=== PATIENT | female | born 1955 | race Caucasian/White ===

== ENCOUNTER 2017-12-13 11:44 | Day surgery (SDC) | payer OTHER ==
[~2017-12-13] VITALS: Ht 167.6 cm; Wt 71.9 kg
[~2017-12-13 11:44] MED LIST: ALTACE PO; ATORVASTATIN CA10 MG PO; Estradiol0.5 MG PO; Hydrocodone-Ap1 EA23 PO; MUPI2TO TOP; Prednisone2.5 MG PO; RAMIPRIL PO; SIROLIMUS1 MG PO; SULTRIDS PO
[2017-12-13] MEDS ORDERED: CALC.25 (12:11)
== END 2017-12-13 13:40 | disposition home or self-care (01) ==
LOC: ORSCSDS 11:44
PROVIDERS: Surgery
PROC: 0DJD8ZZ Inspection of Lower Intestinal Tract, Via Natural or Artificial Opening Endoscopic (ICD-10-PCS; principal; 2017-12-13 13:00)
DX: Z12.11 Encounter for screening for malignant neoplasm of colon (principal); I10 Essential (primary) hypertension; Z94.0 Kidney transplant status; Z87.891 Personal history of nicotine dependence
CPT/HCPCS: J0330; J1980; J2405; J7120

== ENCOUNTER 2020-12-24 11:27 | Emergency (ER) | payer OTHER ==
[~2020-12-24] VITALS: Ht 167.6 cm; Wt 72.6 kg
[~2020-12-24 11:27] MED LIST changes: +CALC.25
[2020-12-24] MEDS ORDERED: Robaxin-750750 MG PO (13:20)
[2020-12-24] MEDS ORDERED: Percocet 5-3251 EACH PO (13:20)
== END 2020-12-24 13:36 | disposition home or self-care (01) ==
LOC: ER 11:27
DX: S51.811A Laceration without foreign body of right forearm, initial encounter (principal); S61.215A Laceration without foreign body of left ring finger without damage to nail, initial encounter; Z79.52 Long term (current) use of systemic steroids; Z95.0 Presence of cardiac pacemaker; Z87.891 Personal history of nicotine dependence
CPT/HCPCS: 12005; 96372-59; 99282-25; A9270; J3010

== ENCOUNTER 2021-01-06 10:12 | Emergency (ER) | payer OTHER ==
[~2021-01-06] VITALS: Ht 167.6 cm; Wt 71.7 kg
[~2021-01-06 10:12] MED LIST changes: +Percocet 5-3251 EACH PO; +Robaxin-750750 MG PO
== END 2021-01-06 11:12 | disposition home or self-care (01) ==
LOC: ER 10:12
DX: S51.811D Laceration without foreign body of right forearm, subsequent encounter (principal); Z95.0 Presence of cardiac pacemaker; Z87.891 Personal history of nicotine dependence; Z79.899 Other long term (current) drug therapy; X58.XXXD Exposure to other specified factors, subsequent encounter

== ENCOUNTER 2022-08-25 05:58 | Day surgery (SDC) | payer MEDICARE, OTHER ==
[2022-08-25] MEDS ORDERED: ASPI325 PO (06:24)
[2022-08-25] MEDS ORDERED: NOVOLOG100 UNIT/2 (06:25)
[2022-08-25] MEDS ORDERED: ATOR10 PO (06:25)
[2022-08-25] MEDS ORDERED: MYCO250 PO (06:26)
[2022-08-25] MEDS ORDERED: HUMULIN N100 UNIT/6 (06:26)
[2022-08-25] MEDS ORDERED: TACR1 (06:27)
[2022-08-25] MEDS ORDERED: PRED5 PO (06:27)
[2022-08-25] MEDS ORDERED: VALCYTE PO (06:28)
--- NOTE | 2022-08-25 09:13 | NUR ---
PT VERBALIZED UNDERSTANDING OF WRITTEN AND VERBAL D/C INST. IV REMOVED. PT TAKING PO FLUIDS /S DIFFICULTY. PT TAKEN OUT OF HRT CENTER VIA W/C.
== END 2022-08-25 23:32 | disposition home or self-care (01) ==
LOC: MHTC 05:58
DX: I35.8 Other nonrheumatic aortic valve disorders (principal); I12.0 Hypertensive chronic kidney disease with stage 5 chronic kidney disease or end stage renal disease; N18.6 End stage renal disease; E78.5 Hyperlipidemia, unspecified; E11.22 Type 2 diabetes mellitus with diabetic chronic kidney disease; F17.200 Nicotine dependence, unspecified, uncomplicated; I07.1 Rheumatic tricuspid insufficiency; Z95.0 Presence of cardiac pacemaker; Z94.0 Kidney transplant status; Z79.82 Long term (current) use of aspirin; Z79.4 Long term (current) use of insulin
CPT/HCPCS: 93312; 93325; A9270; J2704; J7030

== ENCOUNTER 2023-07-09 15:11 | Emergency (ER) | payer MEDICARE, OTHER ==
[~2023-07-09] VITALS: Ht 167.6 cm; Wt 68.0 kg
[~2023-07-09 15:11] MED LIST changes: +ASPI325 PO; +ATOR10 PO; +HUMULIN N100 UNIT/6; +MYCO250 PO; +NOVOLOG100 UNIT/2; +PRED5 PO; +TACR1; +VALCYTE PO
[2023-07-09 16:04] VITALS: BP 191/92
[2023-07-09] MEDS ORDERED: AMOCLA875 PO (17:21)
== END 2023-07-09 17:36 | disposition home or self-care (01) ==
LOC: ER 15:11
DX: S62.637B Displaced fracture of distal phalanx of left little finger, initial encounter for open fracture (principal); W23.0XXA Caught, crushed, jammed, or pinched between moving objects, initial encounter; Z79.899 Other long term (current) drug therapy; Z79.82 Long term (current) use of aspirin; Z79.4 Long term (current) use of insulin; Z79.52 Long term (current) use of systemic steroids; Z87.891 Personal history of nicotine dependence
CPT/HCPCS: 73140; 99283-25

== ENCOUNTER → 2023-09-09 | Outpatient (CLI) | payer MEDICARE, OTHER ==
[~2023-09-09] MED LIST changes: +AMOCLA875 PO
[2023-09-09 13:20] LABS: BASOPHILS ABSOLUTE AUTO 0.05 K/mm3 (0.00-0.23); BASOPHILS PERCENT AUTO 1 % (0-2); EOSINOPHILS ABSOLUTE AUTO 0.16 K/mm3 (0.00-0.68); EOSINOPHILS PERCENT AUTO 2 % (0-6); Hemoglobin 14.6 g/dL (11.5-16.0); IMMATURE GRAN ABSOLUTE AUTO 0.02 K/mm3 (0.00-0.10); IMMATURE GRAN PERCENT AUTO 0 % (0-1); LYMPHOCYTES ABSOLUTE AUTO 0.95 K/mm3 (0.84-5.20); LYMPHOCYTES PERCENT AUTO 14 % (21-46); MONOCYTES ABSOLUTE AUTO 0.58 K/mm3 (0.16-1.47); MONOCYTES PERCENT AUTO 9 % (4-13); Mean Corpuscular HGB 26.2 pg (26.0-34.0); Mean Corpuscular HGB Conc 31.7 g/dL (31.5-36.5); Mean Corpuscular Volume 83 fL (80-100); Mean Platelet Volume 10.3 fL (9.1-12.4); NEUTROPHILS ABSOLUTE AUTO 4.86 K/mm3 (1.96-9.15); NEUTROPHILS PERCENT AUTO 73 % (41-73); Platelet Count 196 K/mm3 (150-400); RDW Coefficient Variation 15.2 % (11.7-14.2); RDW Standard Deviation 45.7 fL (35.1-46.3); Red Blood Cell Count 5.57 M/mm3 (3.80-5.20); White Blood Cell Count 6.62 K/mm3 (4.00-11.30)
[2023-09-09 16:42] LABS: Albumin, Blood 3.3 g/dL (3.4-5.0); Albumin/Globulin Ratio 0.8 (0.8-1.8); Bilirubin, Direct 0.1 mg/dL (0.0-0.3); Bilirubin, Indirect 0.3 mg/dL (0.1-0.7); Bilirubin, Total 0.4 mg/dL (0.1-1.0); Bun/Creatinine Ratio 18.3 (12.0-20.0); Calcium, Blood 9.2 mg/dL (8.5-10.1); Creatinine, Blood 1.04 mg/dL (0.40-1.00); Globulin, Blood 4.2 g/dL (2.2-4.0); Phosphorus, Blood 3.4 mg/dL (2.5-4.9); Potassium, Blood 3.6 mmol/L (3.5-5.5); Total Protein, Blood 7.5 g/dL (6.4-8.2)
[2023-09-14 18:09] LABS: BK QUANTITATION PCR 22 IU/mL (Negative); LOG10 BK QN PCR 1.342 (.)
== END ==
LOC: LAB SHORT 10:20 → LAB 10:20 → LAB FUT 03-15 17:05
PROVIDERS: Internal Medicine Nephrology
DX: N18.2 Chronic kidney disease, stage 2 (mild) (principal); D63.1 Anemia in chronic kidney disease; D51.8 Other vitamin B12 deficiency anemias; D52.8 Other folate deficiency anemias; D50.9 Iron deficiency anemia, unspecified; Z94.0 Kidney transplant status
CPT/HCPCS: 36415; 80053; 82248; 84100; 85025; 87799

== ENCOUNTER → 2024-05-03 | Outpatient (CLI) | payer MEDICARE, OTHER ==
[2024-05-03 13:41] LABS: BASOPHILS ABSOLUTE AUTO 0.05 K/mm3 (0.00-0.23); BASOPHILS PERCENT AUTO 1 % (0-2); EOSINOPHILS PERCENT AUTO 1 % (0-6); Hemoglobin 15.9 g/dL (11.5-16.0); IMMATURE GRAN ABSOLUTE AUTO 0.02 K/mm3 (0.00-0.10); IMMATURE GRAN PERCENT AUTO 0 % (0-1); LYMPHOCYTES ABSOLUTE AUTO 1.04 K/mm3 (0.84-5.20); LYMPHOCYTES PERCENT AUTO 12 % (21-46); MONOCYTES ABSOLUTE AUTO 0.53 K/mm3 (0.16-1.47); MONOCYTES PERCENT AUTO 6 % (4-13); Mean Corpuscular HGB 27.8 pg (26.0-34.0); Mean Corpuscular HGB Conc 33.1 g/dL (31.5-36.5); Mean Corpuscular Volume 84 fL (80-100); Mean Platelet Volume 11.3 fL (9.1-12.4); NEUTROPHILS ABSOLUTE AUTO 6.89 K/mm3 (1.96-9.15); NEUTROPHILS PERCENT AUTO 80 % (41-73); Platelet Count 163 K/mm3 (150-400); RDW Standard Deviation 45.6 fL (35.1-46.3); Red Blood Cell Count 5.72 M/mm3 (3.80-5.20); White Blood Cell Count 8.63 K/mm3 (4.00-11.30)
[2024-05-03 14:02] LABS: Albumin, Blood 3.3 g/dL (3.4-5.0); Anion Gap 9 mmol/L (3-11); Blood Urea Nitrogen 20 mg/dL (8-24); Bun/Creatinine Ratio 20.2 (12.0-20.0); CO2, Blood 22 mmol/L (21-32); Calcium, Blood 8.9 mg/dL (8.5-10.1); Chloride, Blood 112 mmol/L (98-108); Creatinine, Blood 0.99 mg/dL (0.40-1.00); Glomerular Filtration Rate 62 (60-); Glucose, Blood 178 mg/dL (70-99); Phosphorus, Blood 2.3 mg/dL (2.5-4.9); Potassium, Blood 3.9 mmol/L (3.5-5.5); Sodium, Blood 139 mmol/L (136-145)
[2024-05-05 07:37] LABS: SIROLIMUS BY HPLC-MS/MS 3.1 ng/mL
== END ==
LOC: LAB 10:44 → LAB SHORT 10:44 → LAB FUT 03-28 11:10
PROVIDERS: Internal Medicine Nephrology
DX: N18.30 Chronic kidney disease, stage 3 unspecified (principal); D63.1 Anemia in chronic kidney disease; Z94.0 Kidney transplant status; N25.81 Secondary hyperparathyroidism of renal origin; E55.9 Vitamin D deficiency, unspecified; E78.00 Pure hypercholesterolemia, unspecified; R76.9 Abnormal immunological finding in serum, unspecified; R94.5 Abnormal results of liver function studies; R94.6 Abnormal results of thyroid function studies; D51.8 Other vitamin B12 deficiency anemias; D52.8 Other folate deficiency anemias; D50.9 Iron deficiency anemia, unspecified
CPT/HCPCS: 36415; 80069; 80195; 85025

== ENCOUNTER → 2025-03-28 | Outpatient (CLI) | payer MEDICARE, OTHER ==
[2025-03-28 13:48] LABS: BASOPHILS ABSOLUTE AUTO 0.04 K/mm3 (0.00-0.23); BASOPHILS PERCENT AUTO 0 % (0-2); EOSINOPHILS ABSOLUTE AUTO 0.09 K/mm3 (0.00-0.68); EOSINOPHILS PERCENT AUTO 1 % (0-6); Hematocrit 41.6 % (33.0-51.0); Hemoglobin 13.6 g/dL (11.5-16.0); IMMATURE GRAN ABSOLUTE AUTO 0.02 K/mm3 (0.00-0.10); IMMATURE GRAN PERCENT AUTO 0 % (0-1); LYMPHOCYTES ABSOLUTE AUTO 0.98 K/mm3 (0.84-5.20); LYMPHOCYTES PERCENT AUTO 9 % (21-46); MONOCYTES ABSOLUTE AUTO 0.87 K/mm3 (0.16-1.47); MONOCYTES PERCENT AUTO 8 % (4-13); Mean Corpuscular HGB 27.8 pg (26.0-34.0); Mean Corpuscular HGB Conc 32.7 g/dL (31.5-36.5); Mean Corpuscular Volume 85 fL (80-100); Mean Platelet Volume 10.6 fL (9.1-12.4); NEUTROPHILS ABSOLUTE AUTO 8.55 K/mm3 (1.96-9.15); NEUTROPHILS PERCENT AUTO 81 % (41-73); Platelet Count 233 K/mm3 (150-400); RDW Coefficient Variation 13.4 % (11.7-14.2); RDW Standard Deviation 41.8 fL (35.1-46.3); White Blood Cell Count 10.55 K/mm3 (4.00-11.30)
[2025-03-28 14:44] LABS: Alanine Aminotransfer (ALT/SGP 21 U/L (12-78); Albumin, Blood 3.2 g/dL (3.4-5.0); Albumin/Globulin Ratio 0.7 (0.8-1.8); Alk Phos 80 U/L (50-136); Anion Gap 8 mmol/L (3-11); Aspartate Aminotrans (AST/SGOT 16 U/L (12-37); Bilirubin, Direct 0.1 mg/dL (0.0-0.3); Bilirubin, Indirect 0.4 mg/dL (0.1-0.7); Bilirubin, Total 0.5 mg/dL (0.1-1.0); Blood Urea Nitrogen 31 mg/dL (8-24); CHOL/HDL RATIO 3.2; CO2, Blood 26 mmol/L (21-32); Chloride, Blood 104 mmol/L (98-108); Cholesterol 169 mg/dL (50-200); Creatinine, Blood 1.35 mg/dL (0.40-1.00); Ferritin, Serum 117 ng/mL (8-252); Globulin, Blood 4.3 g/dL (2.2-4.0); Glomerular Filtration Rate 43 (60-); Glucose, Blood 206 mg/dL (70-99); HDL Cholesterol 53 mg/dL (>39); Iron Serum 30 ug/dL (50-170); LDL/HDL RATIO 1.5; Low Density Lipoprotein Chol 81 mg/dL (0-110); Percent Saturation 12.6 % (15.0-50.0); Sodium, Blood 134 mmol/L (136-145); Total Iron Binding Capacity 238 ug/dL (250-450); Total Protein, Blood 7.5 g/dL (6.4-8.2); Triglycerides 177 mg/dL (30-160); Very Low Density Lipoprot Chol 35 mg/dL (6-32)
== END | disposition home or self-care (01) ==
LOC: LAB 10:11 → LAB SHORT 10:11 → LAB FUT 08-29 10:10
PROVIDERS: Internal Medicine Nephrology
DX: N18.2 Chronic kidney disease, stage 2 (mild) (principal); D63.1 Anemia in chronic kidney disease; N25.81 Secondary hyperparathyroidism of renal origin; E55.9 Vitamin D deficiency, unspecified; E78.00 Pure hypercholesterolemia, unspecified; D50.9 Iron deficiency anemia, unspecified; D52.8 Other folate deficiency anemias; D51.8 Other vitamin B12 deficiency anemias; R76.9 Abnormal immunological finding in serum, unspecified; R94.5 Abnormal results of liver function studies; R94.6 Abnormal results of thyroid function studies
CPT/HCPCS: 36415; 80053; 80061; 80195; 82248; 82306; 82607; 82728; 82746; 83540; 83550; 83970; 84100; 84443; 85025

== ENCOUNTER 2025-05-03 07:24 | Observation (INO) | payer MEDICARE, OTHER ==
[~2025-05-03] VITALS: Ht 167.6 cm; Wt 72.6 kg
[~2025-05-03 07:24] MED LIST changes: +HUMULIN N100 UNIT/3 SC; -HUMULIN N100 UNIT/6; +NOVOLOG FL100 UNIT/3 SC; -NOVOLOG100 UNIT/2
[2025-05-03] MEDS ORDERED: NS 250 ML IV ONE (14:20)
[2025-05-03] MEDS ORDERED: Heparin Sodium 1000 Units/ML 10ML MDV ONE (14:21)
[2025-05-03] MEDS ORDERED: NS 1,000 ML IV ONE (14:21)
[2025-05-03] MEDS ORDERED: Midazolam HCl 1MG / ML 2ML Vial ONE ×3 (14:41→15:42)
[2025-05-03] MEDS ORDERED: FentaNYL Citrate 50 MCG/ML 2 ML Injection ONE ×3 (14:42→16:23)
[2025-05-03] MEDS ORDERED: NS 500 ML IV ONE (14:44)
[2025-05-03] MEDS ORDERED: DiphenhydrAMINE HCl 50 MG/ML 1ML Vial ONE (15:42)
[2025-05-03 16:57] VITALS: BP 163/75
[2025-05-03] MEDS ORDERED: SIRO1 PO (16:59)
[2025-05-03] MEDS ORDERED: LOSA50 PO (17:01)
[2025-05-03] MEDS ORDERED: FENOFIBRATE48 MG PO (17:02)
[2025-05-03] MEDS ORDERED: FURO20 PO (17:03)
[2025-05-03] MEDS ORDERED: EZET10 PO (17:03)
--- NOTE | 2025-05-03 17:52 | NUR ---
PT ARRIVED TO UNIT @ 1645. AOX4, PLEASANT, COOPERATIVE WITH CARE, ABLE TO MAKE NEEDS KNOWN. POST RENAL STENT PLACEMENT. 2 ACCESS SITES, LEFT AND RIGHT GROIN SITES. PT EDUCATED ON LYING FLAT FOR 2 HOURS POST PLACEMENT, UNDERSTANDING AND COOPERATIVE. RENAL/CC DIET ORDER PLACED. MED REC COMPLETED. ADMISSION ASSESSMENT COMPLETED. UNABLE TO VISUALIZE PT COCCYX/BACKSIDE D/T LYING FLAT FOR STENT PLACEMENT RECOVERY. DENIES PAIN. RUNNING SINUS ON TELE. VITALS STABLE OUTSIDE OF SOMEWHAT ELEVATED BP. BED LOCKED IN LOWEST POSITION. [facility] CONTINUING TO MONITOR.
[2025-05-03 18:23] VITALS: BP 131/68
[2025-05-03] MEDS ORDERED: Polyethylene Glycol 3350 17 gm PO PRN (19:30)
[2025-05-03 19:44] VITALS: BP 146/67
[2025-05-03] MEDS ORDERED: Insulin Human Lispro 100 Units/ML 3ML Syringe SC SCH (21:00)
[2025-05-03 23:06] VITALS: BP 136/54
--- NOTE | 2025-05-03 23:21 | NUR ---
PT HAS LATE DINNER AND NORMALLY TAKES HER INSULIN AT 2100, THIS RN ARRIVED TO ROOM AT APPROX 2230, PT INFORMED THIS RN THAT SHE HAD TAKEN HER OWN INSULIN, 4 UNITS OF NOVOLIN AND HAS HER OWN GLUCOMETER, ATTEMPTED TO EDUCATED PT ON NOT TAKING HER OWN MEDICATIONS AND THAT WHILE AT THE HOSPITAL THE NURSES/DOCTORS MANAGMENT, PT STATED SHE KNOWNS THAT BUT THAT SHE HAS HER OWN SCHEDUEL AND THAT SHE WANTS HER INSULIN TO BE DONE AT THOSE TIMES TO KEEP HER SCHEDULE, ASKED PT IF WE COULD HOLD ONTO HER INSULIN PENS, PT DECLINED, NOTIFIED OF SITUATION
[2025-05-04 04:03] VITALS: BP 150/67
[2025-05-04 04:40] LABS: BASOPHILS ABSOLUTE AUTO 0.04 K/mm3 (0.00-0.23); BASOPHILS PERCENT AUTO 1 % (0-2); EOSINOPHILS ABSOLUTE AUTO 0.14 K/mm3 (0.00-0.68); EOSINOPHILS PERCENT AUTO 2 % (0-6); Hematocrit 29.1 % (33.0-51.0); Hemoglobin 9.3 g/dL (11.5-16.0); IMMATURE GRAN ABSOLUTE AUTO 0.03 K/mm3 (0.00-0.10); IMMATURE GRAN PERCENT AUTO 0 % (0-1); LYMPHOCYTES ABSOLUTE AUTO 1.00 K/mm3 (0.84-5.20); LYMPHOCYTES PERCENT AUTO 13 % (21-46); MONOCYTES ABSOLUTE AUTO 0.77 K/mm3 (0.16-1.47); MONOCYTES PERCENT AUTO 10 % (4-13); Mean Corpuscular HGB Conc 32.0 g/dL (31.5-36.5); Mean Corpuscular Volume 84 fL (80-100); NEUTROPHILS ABSOLUTE AUTO 5.83 K/mm3 (1.96-9.15); NEUTROPHILS PERCENT AUTO 75 % (41-73); NRBC ABSOLUTE 0.00 K/mm3 (0.00-0.02); NRBC Auto 0.0 /100 WBC (0.0-0.2); Platelet Count 300 K/mm3 (150-400); RDW Coefficient Variation 14.6 % (11.7-14.2); RDW Standard Deviation 44.9 fL (35.1-46.3)
--- NOTE | 2025-05-04 05:44 | NUR ---
SHIFT SUMMARY PT IS A&O X4, ABLE TO MAKE NEEDS KNOWN, MOVING ALL EXTREMITIES WITH PURPOSE, REPOSITIONING SELF IN BED, SBA TO BRP. CONTINUOUS SPO2, SPO2 GREATER 90% ON RA, LUNGS SOUND CLEAR T/O, NO SIGNS OF RESPIRATORY DISTRESS. CONTINUOUS TELE MONITORING, SINUS RHYTHM 70-80 S, PULSES PRESENT T/O, PT DENEIS CHEST P/P T/O THIS SHIFT, BP STABLE WITH MAP GREATER THAN 65. BOWEL TONES PRESENT IN ALL 4Q, PT DENIES FEELINGS OF NAUSEA, OR CONSTIPATION. PROCEDURE COMPLETED 05/03, BILATERAL GROIN SITES ARE SOFT AND NONTENDER WITHOUT SIGNS OF HEMATOMA DRESSINGS ARE C/D/I. BED LOWEST POSITION, CALL LIGHT IN REACH, AWAITING TO GIVE REPORT TO ONCOMING RN.
[2025-05-04 07:29] VITALS: BP 157/65
--- NOTE | 2025-05-04 07:42 | NUR ---
ASSUMPTION NOTE: THIS RN TO ASSUME CARE OF PT. PATIENT WAS ASKED ABOUT BLOOD SUGAR SCHEDULE PER REPORT PT GAVE HERSELF INSULIN. PT STATED SHE WOULD LIKE TO USE HER DEXCOM FOR SUGARS BUT IS OKAY WITH US GIVING HER INSULIN PER HER NUMBERS,THIS RN CONTACTED MD REGARDING ORDER FOR THIS,AWAITING A RESPONSE. PT VITAL SIGNS STABLE, MEDICATIONS GIVEN & PT AWAITING BREAKFAST
--- NOTE | 2025-05-04 07:46 | NUR ---
RESPONSE: CONTACTED RN REGARDING PATIENT USING DEXCOM NUMBERS, MD GAVE ORDER FOR PT TO USE HER DEXCOM NUMBERS IN ORDER TO GIVE INSULIN. THIS RN WILL PLACE NURSE NOTIFY ORDER.
[2025-05-04 08:19] LABS: Alanine Aminotransfer (ALT/SGP 17.0 U/L (12-78); Albumin, Blood 2.7 g/dL (3.4-5.0); Albumin/Globulin Ratio 0.7 (0.8-1.8); Anion Gap 11.0 mmol/L (3-11); Aspartate Aminotrans (AST/SGOT 14.0 U/L (12-37); Bilirubin, Total 0.2 mg/dL (0.1-1.0); Blood Urea Nitrogen 50.0 mg/dL (8-24); CO2, Blood 23.0 mmol/L (21-32); Calcium, Blood 8.3 mg/dL (8.5-10.1); Chloride, Blood 112.0 mmol/L (98-108); Creatinine, Blood 2.45 mg/dL (0.40-1.00); Globulin, Blood 3.8 g/dL (2.2-4.0); Glucose, Blood 182.0 mg/dL (70-99); Potassium, Blood 4.5 mmol/L (3.5-5.5); Sodium, Blood 141.0 mmol/L (136-145); Total Protein, Blood 6.5 g/dL (6.4-8.2)
[2025-05-04] MEDS ORDERED: Fenofibrate 67 MG Cap PO SCH (09:00)
--- NOTE | 2025-05-04 09:00 | NUR ---
ROUNDED: MD CASTANON ROUNDED AND NOTIFIED PT SHE WILL BE DISCHARGING AND TO PLACE THE ORDERS SHORTLY. PT AWARE TELE TAKEN OFF.
== END 2025-05-04 10:51 | disposition home health service (06) ==
LOC: ER 07:24 → ERHOLD 07:25 → PCU 07:25
PROVIDERS: Family Medicine; ADMIT Radiology Diagnostic Radiology
DX: T86.19 Other complication of kidney transplant (principal); I70.1 Atherosclerosis of renal artery; E11.9 Type 2 diabetes mellitus without complications; I10 Essential (primary) hypertension; Z95.0 Presence of cardiac pacemaker; Z79.4 Long term (current) use of insulin; Z79.82 Long term (current) use of aspirin; Z79.899 Other long term (current) drug therapy; Z90.710 Acquired absence of both cervix and uterus
CPT/HCPCS: 36140; 36415; 75716; 75726; 76937; 80053; 85025; 99152; 99153; 99284; A9270; C1725; C1760; C1769; C1876; C1887; C1894; C9764; G0378; J1200; J1644; J2250; J3010; J7030; J7040; J7050; J7512; J7520; Q9967